=== PATIENT | male | born 1965 | race Caucasian/White ===

== ENCOUNTER 2019-04-13 23:08 | Emergency (ER) | payer MEDICARE, OTHER, SELFPAY ==
[2019-04-13 23:08] VITALS: BP 148/78; PULSE 88; RESP 16; TEMP 36.8; O2SAT 97; BMI 44.7
--- NOTE | 2019-04-13 23:20 | RAD_ITS ---
STUDY: X-RAY - LEFT FOOT CLINICAL: Male, 53 years old. Pain and tenderness in the heel. TECHNIQUE: 3 view(s) of the foot. COMPARISON: None. FINDINGS: Normal talus, calcaneus, and tarsal bones. There is arthrosis of the visualized subtalar, talonavicular, calcaneocuboid, tarsal and tarsometatarsal articulations. There is surgical resection of the head of the second metatarsal. Otherwise normal metatarsal There is degenerative arthrosis of the metatarsophalangeal joint of the hallux . Normal tibial and fibular sesamoid bones. Normal phalanges of the great toe. Normal second through fifth metatarsophalangeal joints. There is Claw toe deformity of the second through fifth toes. Soft tissues appear normal. There is no foreign body in the soft tissues adjacent to the area of pain. There is evidence of large cracks within the skin surface of the heel. RAD/Foot min 3 Views IMPRESSION: 1. Degenerative changes of the left foot without acute fracture or dislocation. 2. Surgical changes of the distal second metatarsal. 3. There are cracks in the skin overlying the heel without radiopaque foreign body. Electronically Signed: Mono England DO at 23:50 EDT Tel [phone], Service support ,
--- NOTE | 2019-04-13 23:26 | ED.DCSUM_ITS ---
History of Present Illness Chief Complaint: Lower Extremity Injury Informant: Patient Onset: Days - 2-3 Context: Gradual Onset Timing: Continuous Quality of Pain: Aching Location: left foot heel Current Severity: Mild Maximum Severity: Severe Worsened by: palpation or weight bearing on foot Relieved by: rest Associated Symptoms: Negative for: Parasthesia, Weakness, Loss of Funtion Narrative: Patient just be arrived here from [place] sharp pain at [address] the plantar aspect of his left heel for the past 3 days or so, it started gradually he does not remember a sudden onset of anything, but it feels like there is something there, some type of foreign body, just below the surface of the skin. He is too big to see the bottom of his own foot so we had a family member take some pictures and in the pictures looked red which brought him to the ER. He denies any discharge, bleeding, fevers. States his blood sugars have been high for the last couple days because since leaving [place] he forgot his insulin needles for his [place] and has his other medications, but has not been getting that one. - Past Medical History (1) Diabetes mellitus type 2 in obese Status: Chronic Past Medical History - Allergies and Home Meds Allergies/Adverse Reactions: Allergies No Known Allergies Allergy (Verified 04/13/19 23:08) Primary Care Physician: Kwan Harvey,Out of [NON-STAFF] - Smoking Status: Former smoker Review of Systems General: Denies: Chills, Fever Respiratory: Denies: Dyspnea, Cough Gastrointestinal: Denies: Nausea, Vomiting Musculoskeletal: Reports: Swelling - chronic, unchanged ankle swelling, Extremity Pain Skin: Reports: Wounds - chronic splits in skin foot without pain/disch arge/bleeding Physical Exam Vital Signs/Narrative: Vital Signs Temp Pulse Resp BP Pulse Ox 04/13/19 23:08 98.3 F 88 16 148/78 H 97 Inital Vital Signs reviewed: Yes - Extremity Exam Right Ankle: Edema - Chronic and unchanged per patient Left Ankle: Edema - Chronic and unchanged per patient Left Foot: - - Very tender at one point at plantar aspect of left heel; no palpable foreign body, no skin abnormalities overlying, no erythema/abnormal blanching compared with surrounding areas, no focal swelling. There is a superficial split and a callus posterior to this that does not appear infected and is nontender, and there is a similar-appearing but larger one at the tip of his great toe that is also nontender it does not appear infected. General: Well nourished, Well developed, Obese, - - Conversive, no acute distress, well-appearing Head: Normocephalic, Atraumatic Skin: Normal color, No rash, - - See above, left foot, for other details Neurological: Alert, Oriented x3, Cranial nerves II-XII grossly intact, Normal Strength, Normal Sensation Psychological: Normal affect, Normal Mood Diagnostic/Tx/Re-eval Impressions Foot X-Ray 04/13/19 23:20 IMPRESSION: 1. Degenerative changes of the left foot without acute fracture or dislocation. 2. Surgical changes of the distal second metatarsal. 3. There are cracks in the skin overlying the heel without radiopaque foreign body. Electronically Signed: Mono England DO at 23:50 EDT Tel [phone], Service support , 04/13/19 23:20 Foot min 3 Views [RAD] Stat Laboratory Results 04/13/19 04/13/19 23:28 23:28 WBC 5.9 RBC 3.70 L Hgb 11.0 L Hct 32.7 L MCV 88.4 MCH 29.7 MCHC 33.6 RDW 14.1 RDW Differential 45.6 H Plt Count 151 MPV 10.2 Immature Gran % (Auto) 0.200 Neut % (Auto) 65.4 Lymph % (Auto) 24.0 [place] % (Auto) 8.0 Eos % (Auto) 1.5 Baso % (Auto) 0.9 Absolute Neuts (auto) 3.9 Absolute Lymphs (auto) 1.41 Total Counted Not Reportable Sodium 137 Potassium 4.0 Chloride 107 Carbon Dioxide 22.0 Anion Gap 8 BUN 36 H Creatinine 1.91 H Estim Creat Clear Calc 50.22 Est GFR (MDRD) Af Amer 48 L Est GFR (MDRD) Non-Af 40 L BUN/Creatinine Ratio 18.8 Glucose 406 H Calcium 8.1 L - Medical Decision Making X-rays show no radiopaque foreign body. There is no evidence of infection clinically, but he is very point tender. Certainly a non-radiopaque foreign body is possible. He cannot remember walking barefoot anytime in the recent past or any obvious scenario where he could have received a foreign body. He is a diabetic with a high blood sugar but that is unrelated, and is iatrogenic since he has been unable to take his medication. We gave him some insulin needles here to use with his medication that he has with him. I gave him a dose of insulin to help get his sugar down tonight. I will place him on a short course of Keflex in order to keep him from getting any type of infection, or to treat any type of early infection that is not clinically evident yet. We will refer him to podiatry if he has continued symptoms. He is comfortable with this plan. ED Disposition - Plan for ED Patient: Disposition: Home or Assisted Living Diagnosis: Left foot pain, Hyperglycemia due to type 2 diabetes mellitus Instructions: Diabetes: Keeping Feet Healthy Prescriptions: Cephalexin [Keflex] 500 mg PO TID #21 cap Referrals: Salazar López DPM [STAFF PHYSICIAN] - 3-5 Days if not improving
--- NOTE | 2019-04-13 23:29 | ED.RN ---
DR. JEFFERY SAID PATIENT IS OK TO TAKE HOME MEDICATIONS. PATIENT IS VISITING HERE IN [place] AND DOES NOT HAVE NEEDLES TO TAKE HIS VICTOZA. DR. JEFFERY SAID IT IS OK TO GIVE HIM A COUPLE NEEDLES.
[2019-04-13 23:37] LABS: Absolute Lymphocyte Count 1.41 X10^3/ul (0.83-4.51); Absolute Neutrophil Count 3.9 X10^3/uL (2.0-7.7); Basophil# 0.05 X10^3/uL; Basophil% 0.9 % (0-1); Eosinophil# 0.09 X10^3/uL; Eosinophils% 1.5 % (0-5); Hematocrit 32.7 % (40-54); Lymphocyte # 1.41 X10^3/ul (4.0); Mean Corp Hgb Conc 33.6 g/gl (32-36); Mean Corpuscular Hgb 29.7 pg (27.0-32.0); Mean Corpuscular Volume 88.4 fL (80-94); Mean Platelet Vol. 10.2 fl (6.2-12.0); Monocyte# 0.47 X10^3/uL; Neutrophil # 3.85 X10^3/uL (2.7-7.7); Neutrophil % 65.4 % (47-70); Platelet Count 151 K/mm3 (150-450); RBC Distribution Width CV 14.1 % (11.6-14.6); RBC Distribution Width SD 45.6 fl (35.1-43.9); White Blood Count 5.9 K/mm3 (4.4-11.0)
[2019-04-13 23:51] LABS: POSITIVE COUNT NO; POSITIVE DIFFERENTIAL NO; POSITIVE MORPHOLOGY NO
[2019-04-13 23:57] LABS: Anion Gap 8 (5-15); BUN 36 mg/dL (7-18); BUN/Creat Ratio 18.8 RATIO (10-20); Calcium,Total 8.1 mg/dL (8.5-10.1); Chloride 107 mmol/L (98-107); Creatinine, Serum 1.91 mg/dL (0.70-1.30); EST Glomerular Filtration Rate 40 mL/min (>60); Est Glom Filt Rate - Afr Amer 48 mL/min (>60); Estimated Creatinine Clearance 50.22 ml/min; Glucose 406 mg/dL (74-106); Sodium Level 137 mmol/L (136-145)
--- NOTE | 2019-04-14 00:01 | ED.RN ---
sepsis screen completed per dr. contreras.
[2019-04-14] MEDS: Insulin Lispro 100 UNIT/ML INSULN.PEN 12 UNIT SC (00:08)
[2019-04-14] MEDS: Cephalexin 250 MG Capsule 500 MG PO (00:08)
== END 2019-04-14 00:13 | disposition home or self-care (01) ==
PROVIDERS: Emergency Provider Emergency Medicine
DX: M79.672 Pain in left foot (principal); E11.65 Type 2 diabetes mellitus with hyperglycemia; Z87.891 Personal history of nicotine dependence; E66.9 Obesity, unspecified
CPT/HCPCS: 36415; 73630; 80048; 85025; 99283

== ENCOUNTER 2024-07-18 20:09 | Inpatient (IN) | payer OTHER, SELFPAY ==
[2024-07-18] VITALS (7 sets, daily range): BP systolic 153–198; BP diastolic 78–105; PULSE 80–92; RESP 18; TEMP 36.2–36.8; O2SAT 96–100
--- NOTE | 2024-07-18 21:07 | ED.VIS.LOWEX ---
HPI History of Present Illness Chief Complaint: Wound Detail of Chief Complaint: Left leg pain and swelling Informant: patient Narrative Narrative: Patient presents with left leg pain and swelling. Patient states that he had his left great toe amputated in the May. He has had some skin graft applied a week ago because of the wound. He is on doxycycline. He is from [place] and here visiting his mom who is in the hospital. Patient is a diabetic. He states he ran out of his doxycycline. Now his foot and leg to the calf are more swollen. He denies chest pain or shortness of breath. He denies fevers. PFSH PFS Home Medications ?Medication ?Instructions ?Recorded ?Last Taken ?Type cephalexin 500 mg capsule 500 mg PO TID #21 caps 04/14/19 Unknown Rx atorvastatin 80 mg tablet 80 mg PO QHS 07/18/24 Unknown History doxycycline monohydrate 100 mg 100 mg PO BID 07/18/24 Unknown History tablet finasteride 5 mg tablet 5 mg PO QHS 07/18/24 Unknown History insulin glargine 100 unit/mL 35 unit subcut BID 07/18/24 Unknown History subcutaneous solution (Lantus U-100 Insulin) naltrexone 8 mg-bupropion 90 mg 1 tab PO BID 07/18/24 Unknown History tablet,extended release pantoprazole 40 mg tablet,delayed 40 mg PO 07/18/24 Unknown History release tamsulosin 0.4 mg capsule 0.4 mg PO QHS 07/18/24 Unknown History Allergy/AdvReac Type Severity Reaction Status Date / Time vancomycin Allergy Unknown OTHER Verified 07/18/24 20:10 varenicline (From Chantix) Allergy Unknown Other Verified 07/18/24 20:10 Social History Smoking Status: Former smoker ROS ROS ED Review of Systems ROS Unobtainable: other Constitutional Constitutional ED: Reports lethargy; Denies chills, fever(s), sweats or weight loss Eyes Eyes: Denies blurry vision, change in vision or diplopia ENT ENT ED: Denies rhinorrhea or sore throat Cardiovascular Cardiovascular: Denies chest pain, orthopnea or racing heartbeat Respiratory/Chest Respiratory/Chest: Denies cough, dyspnea, dyspnea on exertion, orthopnea or sputum Gastrointestinal Gastrointestinal: Denies abdominal pain, diarrhea, nausea or vomiting Genitourinary Genitourinary ED: Denies dysuria, hematuria or urinary frequency Musculoskeletal Musculoskeletal: Reports other Details: Left leg pain and swelling ; Denies arthralgias, back pain, myalgias or neck pain Integumentary Denies abscess, Abrasions or rash Neurologic Neurologic: Denies headache(s) or weakness Psychiatric Psychiatric: Denies anxiety, depression or suicidal thoughts Endocrine Endocrinology: Denies polydipsia, polyphagia or polyuria Hematologic/Lymphatic Hematologic/Lymphatic: Denies easy bleeding, easy bruising or lymphadenopathy Allergic/Immunologic Allergic/Immunologic ED: Denies mouth swelling, tongue swelling or urticaria EXAM Physical Exam Const Vital Signs: 07/18/24 20:10 07/18/24 20:37 07/18/24 21:12 Temperature 97.2 F L 98.3 F 98.2 F Temperature Source Temporal Oral Oral Pulse Rate 92 83 82 Respiratory Rate 18 18 18 Blood Pressure 198/88 H 161/105 H 156/78 H Blood Pressure Mean 124 123 104 Pulse Ox 100 98 97 Oxygen Delivery Method Room Air Room Air Room Air 07/18/24 21:53 Temperature 98.2 F Temperature Source Oral Pulse Rate 83 Respiratory Rate 18 Blood Pressure 153/80 H Blood Pressure Mean 104 Pulse Ox 97 Oxygen Delivery Method Room Air Positive well nourished and well developed General Appearance ED: well developed and NAD HEENT Reports TM's clear and moist mucous membranes normocephalic and atraumatic; Negative for trauma or tenderness Tympanic Membrane ED: Yes TM's clear Eyes PERRL and EOMs intact bilaterally General Eye ED: Negative for pale conjunctiva or scleral icterus Neck no lymphadenopathy, supple and no JVD General: Negative for tenderness Chest Wall inspection of chest normal and palpation of chest normal Chest: Negative for tenderness Resp normal respiratory effort and clear to auscultation bilaterally Effort and Inspection: Negative for respiratory distress or pain with movement Auscultation: Negative for rhonchi, wheezes or diminished lung sounds Cardio regular rate, regular rhythm, S1 normal heart sound, S2 normal heart sound and no murmurs Peripheral Pulses: pulses 2+ throughout GI normal to inspection, nondistended, normoactive bowel sounds, soft to palpation, non-tender, non-distended and no masses Back/Spine no CVA tenderness and no thoracic nor lumbar tenderness Extremity Extremity Narrative: Left leg-patient has edema of the left calf with some faint chronic cellulitic changes. Patient also has edema of the left foot. His great toes been amputated. No significant warmth noted. No open areas or purulent drainage noted. General Extremety ED: Negative for edema General Extremity: Negative for edema Neuro oriented x3, CN's II-XII intact bilaterally, no sensory deficits noted and gait normal Sensorium / Orientation: awake, alert, oriented to person, oriented to place and oriented to time Motor Exam: strength 5/5 throughout and strength abnormal Psych mental status grossly normal Skin no rashes or lesions noted and no wounds MDM MDM MDM Narrative Medical decision making narrative: Patient complains of redness and swelling to his left leg. Had been on doxycycline and ran out. Recent resection of his left great toe. Has had recent skin grafting. He is a diabetic with neuropathy visiting from [place]. IV line established. CBC with differential obtained showing a 5.2 with hemoglobin 8.8 and platelet count of 140. Chemistries unremarkable. BUN 40 and creatinine 3.65. Sed rate was elevated at 37 and C-reactive protein elevated at 36.4. X-rays of the left foot obtained showed no gas within the tissues. No obvious changes for osteomyelitis. Patient tells me he is allergic to vancomycin and Chantix. He was started on Zosyn. Case discussed with hospitalist to evaluate for admission for IV antibiotics for cellulitis. Patient had ultrasound the left lower extremity to rule out DVT and this was negative. Lab Data Attestation: I reviewed the patient's lab results. Labs: Laboratory Results - last 24 hr 07/18/24 21:20 WBC 5.2 RBC 3.07 L Hgb 8.8 L Hct 28.2 L MCV 91.9 MCH 28.7 MCHC 31.2 L RDW Std Deviation 49.1 H RDW Coeff of Ernesto 14.6 Plt Count 140 L MPV 10.2 Immature Gran % (Auto) 0.600 Neut % (Auto) 63.9 Lymph % (Auto) 20.7 [place] % (Auto) 10.5 H Eos % (Auto) 3.3 Baso % (Auto) 1.0 Absolute Neuts (auto) 3.4 Absolute Lymphs (auto) 1.08 Nucleated RBC % 0 Dohle Bodies 5.2 ESR 37 H Sodium 136 Potassium 4.7 Chloride 107 Carbon Dioxide 25.0 Anion Gap 4 L BUN 40 H Creatinine 3.65 H Est GFR (MDRD) Af Amer 22 L Est GFR (MDRD) Non-Af 18 L BUN/Creatinine Ratio 11.0 Glucose 314 H Calcium 8.5 C-React Prot Ext Range 36.40 H Radiography Diagnostic Testing: Clinical Impression(s) from Imaging Studies Venous Duplex 07/18/24 21:08 IMPRESSION: Subcutaneous edema lower legs. No DVT. Electronically Signed: Scottie Hewitt MD at 22:22 EDT Reading Location ID and State: [facility] / [place] Tel , Service support , Foot X-Ray 07/18/24 21:30 IMPRESSION: Soft tissue swelling great toe region. Chronic bony changes as noted above and amputation first and third digits. Electronically Signed: Scottie Hewitt MD at 22:12 EDT Reading Location ID and State: [facility] / [place] Tel , Service support , Three-view x-rays of the left foot obtained showed amputation of great toe and third toe interpretation. There is no gas within the tissues. There was soft tissue swelling. Radiology in agreement. Discharge Plan Triage Chief Complaint: Wound ED Provider: Kinjal Fraire Dx/Rx/DC Orders Clinical Impression: Cellulitis of left leg, Acute renal insufficiency, Hyperglycemia Prescriptions: No Action cephalexin 500 MG capsule 500 mg PO TID Qty: 21 0RF insulin glargine [Lantus U-100 Insulin] 100 unit/mL solution 35 unit subcut BID doxycycline monohydrate 100 mg tablet 100 mg PO BID tamsulosin 0.4 mg capsule 0.4 mg PO QHS pantoprazole 40 mg tablet,delayed release (DR/EC) 40 mg PO finasteride 5 mg tablet 5 mg PO QHS naltrexone-bupropion 8-90 mg tablet extended release 1 tab PO BID atorvastatin 80 mg tablet 80 mg PO QHS Primary Care Provider: [facility] Doctor,Out of Referrals: [facility] Doctor,Out of [Primary Care Provider] - Print Language: Faroese Disposition Disposition: Acute Care [facility]
--- NOTE | 2024-07-18 21:08 | US_ITS ---
STUDY: VENOUS DOPPLER ULTRASOUND - LEFT LOWER EXTREMITY REASON FOR EXAM: Male, 59 years old. LT LEG REDNESS TECHNIQUE: Ultrasound evaluation of the deep vein system to include nair-scale imaging and compression was performed. Nair-scale imaging and Doppler sonographic evaluation, including duplex spectral analysis and qualitative color flow sonography, was performed. COMPARISON: None. FINDINGS: Common Femoral Vein: Normal compression, spontaneity and augmentation. Normal color Doppler. Common Femoral Vein/Greater Saphenous Junction: Normal compression, spontaneity and augmentation. Normal color Doppler. Deep Femoral Vein: Normal compression, spontaneity and augmentation. Normal color Doppler. Femoral Proximal: Normal compression, spontaneity and augmentation. Normal color Doppler. Femoral Middle: Normal compression, spontaneity and augmentation. Normal color Doppler. Femoral Distal: Normal compression, spontaneity and augmentation. Normal color Doppler. Popliteal Vein: Normal compression, spontaneity and augmentation. Normal color Doppler. Posterior Tibial Vein: Normal compression, spontaneity and augmentation. Normal color Doppler. Peroneal Vein: Normal compression, spontaneity and augmentation. Normal color Doppler. Soft tissue swelling lower leg. US/Venous Duplex Imag/Limited/Uni IMPRESSION: Subcutaneous edema lower legs. No DVT. Electronically Signed: Scottie Hewitt MD at 22:22 EDT ,
[2024-07-18 21:30] LABS: Absolute Lymphocyte Count 1.08 X10^3/uL (0.83-4.51); Absolute Neutrophil Count 3.4 X10^3/uL (2.0-7.7); Basophil# 0.05 X10^3/uL; Eosinophil# 0.17 X10^3/uL; Eosinophils% 3.3 % (0-5); Hematocrit 28.2 % (40-54); Hemoglobin 8.8 g/dL (13.0-16.5); Lymphocyte # 1.08 X10^3/ul (0.83-4.51); Lymphocyte % 20.7 % (19-41); Mean Corp Hgb Conc 31.2 g/dL (32-36); Mean Corpuscular Hgb 28.7 pg (27.0-32.0); Mean Corpuscular Volume 91.9 fL (80-94); Mean Platelet Vol. 10.2 fl (6.2-12.0); Monocyte# 0.55 X10^3/uL; Monocyte% 10.5 % (0-10); NRBC Flagged by Analyzer 0 % (0-5); Neutrophil # 3.35 X10^3/uL (2.7-7.7); Neutrophil % 63.9 % (47-70); Platelet Count 140 K/mm3 (150-450); RBC Distribution Width CV 14.6 % (11.6-14.6); RBC Distribution Width SD 49.1 fl (35.1-43.9); Red Blood Count 3.07 M/mm3 (4.6-6.2); White Blood Count 5.2 K/mm3 (4.4-11.0)
--- NOTE | 2024-07-18 21:30 | RAD_ITS ---
STUDY: X-RAY - LEFT FOOT CLINICAL: Male, 59 years old. pain, swelling TECHNIQUE: 3 view(s) of the foot. COMPARISON: None. FINDINGS: Normal talus, calcaneus, and tarsal bones. Normal visualized subtalar, talonavicular, calcaneocuboid, tarsal and tarsometatarsal articulations. Osteolysis of the second metatarsal head. Amputation great toe at the metatarsal phalangeal joint. Normal tibial and fibular sesamoid bones. Normal interphalangeal joint of the great toe. Normal phalanges of the great toe. Normal second through fifth metatarsophalangeal joints. Residual well-corticated osteolysis third proximal phalanx. Soft tissue calcifications lower leg. Diffuse soft tissue swelling especially the great toe region. No subcutaneous gas or radiodense foreign body noted. RAD/Foot min 3 Views IMPRESSION: Soft tissue swelling great toe region. Chronic bony changes as noted above and amputation first and third digits. Electronically Signed: Scottie Hewitt MD at 22:12 EDT ,
[2024-07-18 21:37] LABS: Dohle Bodies 5.2
[2024-07-18 21:38] LABS: Erythrocyte Sedimentation Rate 37 mm/hr (0-20)
[2024-07-18 21:42] LABS: Anion Gap 4 (5-15); BUN 40 mg/dL (7-18); Calcium,Total 8.5 mg/dL (8.5-10.1); Chloride 107 mmol/L (98-107); Creatinine, Serum 3.65 mg/dL (0.70-1.30); EST Glomerular Filtration Rate 18 mL/min (>60); Est Glom Filt Rate - Afr Amer 22 mL/min (>60); Glucose 314 mg/dL (74-106); Potassium 4.7 mmol/L (3.5-5.1); Sodium Level 136 mmol/L (136-145)
[2024-07-18] MEDS: Piperacil/Tazobactam 4.5 GM in 0.9% Normal Saline (100mL MB+) 100 ML IV (22:37)
--- NOTE | 2024-07-18 22:43 | PCM.HP.STD ---
HPI - General General Date of Admission: 07/18/24 Date of Service: 07/18/24 Chief Complaint: LLE distal cellulitis. HPI Narrative The patient is a 59 y/o M w/ PMHx: Hx CVA w/ mild chronic speech deficits associated, Former tobacco use, Diabetes mellitus type II, HTN, HLD, GERD, Chronic memory impairment/potentially underlying dementia, unclear type with unclear behavioral disturbance history, Suspected CKD unclear type III versus possible progressed to IV, Chronic anemia who presents to the [facility] ED on 07/18/24 with history of significant left lower extremity foot pain and swelling with recent left great toe amputation May with a skin graft applied the week prior secondary to a wound on doxycycline at that time reporting that he is actually visiting from [place] secondary to his mother being in the hospital unfortunately running out of the doxycycline with then onset of distal schmidt on the LLE onset redness, edema, discomfort x 1.5 weeks, worsening with no fevers or chills but given appearance prompted ED evaluation to be cautious. He currently complains of discomfort to the left distal schmidt and ankle region at 7 out of 10 in severity, aching, more severe with palpation. Workup in the ED included T97.2, heart rate 92, BP 198/88, respiratory rate 18, 100% on room air with most recent repeat vital signs T98.2, heart rate 83, BP 153/80, respiratory rate 18, 97% on room air, CBC with WBC 5.2, hemoglobin 8.8, MCV 91.9, platelet 140 without marked shift, ESR 37, CRP 36.40, BMP with BUN/creatinine 40/3.65, glucose 314, left lower extremity venous duplex ultrasound with subcutaneous edema but no DVT, plain film of the left foot with soft tissue swelling of the great toe region with chronic bony changes and evidence of previous amputation of the first and third digits. In the ED patient administered IV Zosyn therapy. [facility] Medical History BPH (benign prostatic hyperplasia) Chronic anemia CKD (chronic kidney disease) History of CVA (cerebrovascular accident) Memory impairment GERD (gastroesophageal reflux disease) HLD (hyperlipidemia) HTN (hypertension) Diabetes mellitus, type 2 Former tobacco use Home Medications ?Medication ?Instructions ?Recorded ?Last Taken ?Type cephalexin 500 mg capsule 500 mg PO TID #21 caps 04/14/19 Unknown Rx atorvastatin 80 mg tablet 80 mg PO QHS 07/18/24 Unknown History doxycycline monohydrate 100 mg 100 mg PO BID 07/18/24 Unknown History tablet finasteride 5 mg tablet 5 mg PO QHS 07/18/24 Unknown History insulin glargine 100 unit/mL 35 unit subcut BID 07/18/24 Unknown History subcutaneous solution (Lantus U-100 Insulin) naltrexone 8 mg-bupropion 90 mg 1 tab PO BID 07/18/24 Unknown History tablet,extended release pantoprazole 40 mg tablet,delayed 40 mg PO 07/18/24 Unknown History release tamsulosin 0.4 mg capsule 0.4 mg PO QHS 07/18/24 Unknown History Allergy/AdvReac Type Severity Reaction Status Date / Time vancomycin Allergy Unknown OTHER Verified 07/18/24 20:10 varenicline (From Chantix) Allergy Unknown Other Verified 07/18/24 20:10 Family History (Updated 07/18/24 @ 23:[address] Anitha Glass MD) Father CAD (coronary artery disease) Heart disease Hypertension Myocardial infarction Mother Hypertension Heart disease PAF (paroxysmal atrial fibrillation) Surgical History (Updated 07/18/24 @ 23:[address] Anitha Glass MD) S/P pilonidal cyst excision Status post bilateral total hip replacement S/P appendectomy Status post left foot surgery Social History (Updated 07/18/24 @ 23:[address] Anitha Glass MD) household members: spouse Smoking Status: Former smoker how long ago did patient quit smoking: Quit 11 years prior (~2012), smoked 3/4 ppd since teen until quit. alcohol intake: never substance use type: does not use ROS ROS Narrative Admission Review of Systems: CONSTITUTIONAL: No weight loss, fever, chills, weakness or fatigue. HEENT: Eyes: No visual loss, blurred vision, double vision or yellow sclerae. Ears, Nose, Throat: No hearing loss, sneezing, congestion, runny nose or sore throat. SKIN: + Chronic bilateral lower extremity venous stasis skin changes, recent left lower extremity great toe amputation with grafting, left distal schmidt redness/stasis wounds. CARDIOVASCULAR: No chest pain, chest pressure or chest discomfort, palpitations, edema, orthopnea, syncopal events. RESPIRATORY: No shortness of breath, cough or sputum, wheezing, hemoptysis. GASTROINTESTINAL: No anorexia, nausea, vomiting or diarrhea, abdominal pain, melena, BRBPR. GENITOURINARY: No dysuria, frequency, urgency or retention. NEUROLOGICAL: + History of prior CVA with chronic mild speech impairment, no headache, dizziness, syncope, paralysis, ataxia, numbness or tingling in the extremities, focal weakness, change in bowel or bladder control, seizure. MUSCULOSKELETAL: No muscle, back pain, joint pain or stiffness. HEMATOLOGIC: + Chronic anemia, easy bleeding/bruising. LYMPHATICS: No enlarged nodes. No history of splenectomy. PSYCHIATRIC: + Suspect potential underlying PTSD but uncertain. ENDOCRINOLOGIC: No reports of sweating, cold or heat intolerance. No polyuria or polydipsia. ALLERGIES: No history of asthma, hives, eczema or rhinitis. Vital Signs Vital Signs Vital Signs: 07/18/24 20:10 07/18/24 20:37 07/18/24 21:12 Temperature 97.2 F L 98.3 F 98.2 F Temperature Source Temporal Oral Oral Pulse Rate 92 83 82 Respiratory Rate 18 18 18 Blood Pressure 198/88 H 161/105 H 156/78 H Blood Pressure Mean 124 123 104 Pulse Ox 100 98 97 Oxygen Delivery Method Room Air Room Air Room Air 07/18/24 21:53 Temperature 98.2 F Temperature Source Oral Pulse Rate 83 Respiratory Rate 18 Blood Pressure 153/80 H Blood Pressure Mean 104 Pulse Ox 97 Oxygen Delivery Method Room Air Physical Exam Narrative Physical Examination: General: Awake, alert, oriented x 3 and cooperative, seated upright in the ED bed, notes pain to left distal schmidt region 7 out of 10. Skin: Normal color, normal turgor, no icterus, no cyanosis except for notable bilateral lower extremity venous stasis skin changes as well as recent left great toe amputation status post grafting, well-appearing, left distal schmidt with erythema, increased warmth to touch, increased swelling as well as open stasis blister wounds with no marked drainage and not foul-smelling. HEENT: AT/NC, EOMI, PERRLA, MMM, no carotid bruits or JVD noted. Lungs: Mildly diminished, greater bases, appropriate effort, no rales, ronchi or wheezing. Heart: Currently regular rate and rhythm; no gallop, rub audible. Abdomen: Soft, obese, NTTP, ND, mildly hyperactive BS, no appreciated HSM. Extremities: No cyanosis, no clubbing, bilateral lower extremity appearance of likely chronic edema but also acute on chronic left lower extremity with some pitting secondary to acute infection, see skin. Neurological: Patient awake, alert, oriented as noted, cognitive function intact; pupils equally reactive to light and accommodation, cranial nerves grossly normal, moving all 4 extremities, no focal deficits, strength moderately globally decreased secondary to acute presentation complaints and underlying comorbidities. Psychiatric: Affect appears fatigued, notes uncomfortable, no acute evidence of depressive or anxiety feelings but do suspect likely underlying mood disorder versus PTSD. Results Lab / Micro Data 07/18/24 21:20 07/18/24 21:20 Labs: Laboratory Results - last 24 hr 07/18/24 21:20: WBC 5.2, RBC 3.07 L, Hgb 8.8 L, Hct 28.2 L, MCV 91.9, MCH 28.7, MCHC 31.2 L, RDW Std Deviation 49.1 H, RDW Coeff of Ernesto 14.6, Plt Count 140 L, MPV 10.2, Immature Gran % (Auto) 0.600, Neut % (Auto) 63.9, Lymph % (Auto) 20.7, [place] % (Auto) 10.5 H, Eos % (Auto) 3.3, Baso % (Auto) 1.0, Absolute Neuts (auto) 3.4, Absolute Lymphs (auto) 1.08, Nucleated RBC % 0, Dohle Bodies 5.2, ESR 37 H, Sodium 136, Potassium 4.7, Chloride 107, Carbon Dioxide 25.0, Anion Gap 4 L, BUN 40 H, Creatinine 3.65 H, Est GFR (MDRD) Af Amer 22 L, Est GFR (MDRD) Non-Af 18 L, BUN/Creatinine Ratio 11.0, Glucose 314 H, Calcium 8.5, C-React Prot Ext Range 36.40 H Imaging Radiology Impression Venous Duplex 07/18/24 21:08 IMPRESSION: Subcutaneous edema lower legs. No DVT. Electronically Signed: Scottie Hewitt MD at 22:22 EDT , Foot X-Ray 07/18/24 21:30 IMPRESSION: Soft tissue swelling great toe region. Chronic bony changes as noted above and amputation first and third digits. Electronically Signed: Scottie Hewitt MD at 22:12 EDT Reading Location ID and State: [facility] [place] Tel , Service support , Assessment & Plan Assessment/Plan (1) Cellulitis of left leg: PLAN: Plan The patient is a 59 y/o M w/ PMHx: Hx CVA w/ mild chronic speech deficits associated, Former tobacco use, Diabetes mellitus type II, HTN, HLD, GERD, Chronic memory impairment/potentially underlying dementia, unclear type with unclear behavioral disturbance history, Suspected CKD unclear type III versus possible progressed to IV, Chronic anemia who presents to the [facility] ED on 07/18/24 with history of significant left lower extremity foot pain and swelling with recent left great toe amputation May with a skin graft applied the week prior secondary to a wound on doxycycline at that time reporting that he is actually visiting from [place] secondary to his mother being in the hospital unfortunately running out of the doxycycline with then onset of distal schmidt on the LLE onset redness, edema, discomfort x 1.5 weeks, worsening with no fevers or chills but given appearance prompted ED evaluation to be cautious. #1. Left lower extremity cellulitis complicated by recent LLE great toe amp and recent grafting to that region ~ 3 weeks prior: Will admit to [facility], maintain on IV Zosyn, defer vanc given possible severe allergy, will plan repeat CBC in AM, continue affected extremity elevation above heart when seated and in bed, monitor erythema outline with VS checks, given extensive history and recent interventions will request local podiatry evaluation to be cautious however it is well appearing, encourage offloading to this region, pain regimen as needed. MRSA screen requested and if positive may need to consider linezolid. #2. Diabetes mellitus type II with hyperglycemia, suspect uncontrolled: Hold oral home regimen, continue home insulin regimen, ADA diet, accu checks w/ ISS, hemoglobin A1c requested, nutrition consulted for education and teaching. #3. Suspected Chronic Kidney Disease Stage III per prior GFR attending remotely in 2018, potentially progressed to stage IV based on current GFR presentation: Admission BUN/Cr 40/3.65, GFR 18, baseline renal function noted remotely 04/03/19 creatinine 1.91 and GFR at that time 40, thus unclear if patient is stage III and now progressed to stage IV CKD, will repeat CMP to further elucidate if this is chronic or if there is an acute component. #4. Chronic normocytic anemia: Admission hemoglobin 8.8, MCV 91.9, no recent labs, remotely noted 04/13/19 hemoglobin 11, will obtain iron panel, ferritin, repeat CBC in AM. #5. Chronic memory impairment/potentially underlying dementia, unclear type with unclear behavioral disturbance history: From prior records appears to have been on donepezil, clarifying if ongoing, encourage continued outpatient follow-up and evaluation as previously arranged, case management consulted. #6. BPH: We will continue patient home Flomax and finasteride home regimen. #7. Hypertension: Continue home regimen including amlodipine 10 mg, holding benazepril given unclear renal function at this time as noted above, PRN hydralazine. #8. Hyperlipidemia: We will continue patient on statin therapy. #9. Former tobacco use: Encourage continued tobacco cessation. #10. GERD: We will continue patient on PPI. #11. History CVA: Patient with chronic mild speech impairment/stuttering reported following stroke approximate 11 years prior, will continue aspirin, statin, hypertensive regimen, diabetic regimen with adjustments as noted. #12. DVT prophylaxis: Heparin. #13. CODE status: Patient does not have healthcare power of civil rights attorney or living will in place but notes his Ana would be his decision-maker if necessary. Discussed CODE status at length including difference between FULL code, DNR-CCA and DNR-CC status. Following discussions about the differences in these status, requested Full Code status BUT he very specifically notes that he would only want 15 minutes of these measures and if they were not successful at that point to let him pass naturally. Advanced Care Planning Face to Face Time: 16 minutes. Charges/Coding Visit Charges Inpatient E&M: 95593 Init Hosp L3 Procedures Hospitalists Procedures: 70527 Advncd Care Plan 30 Min
[2024-07-18 23:04] LABS: Magnesium 2.3 mg/dL (1.6-2.6)
[2024-07-19] VITALS (12 sets, daily range): BP systolic 104–183; BP diastolic 70–87; PULSE 66–84; RESP 16–18; TEMP 36.4–37.1; O2SAT 96–100; BMI 36.8; BMI 36.7
[2024-07-19] MEDS: 0.9% Normal Saline (1000mL) 1,000 ML 100 ML IV (02:40)
--- NOTE | 2024-07-19 03:03 | NURSING ---
Patient request to check on glucose which was 252
[2024-07-19] MEDS: Piperacil/Tazobactam 3.375 GM in 0.9% Normal Saline (50mL MB+) 50 ML IV ×3 (06:07→22:01)
--- NOTE | 2024-07-19 07:02 | ED.RN ---
Patients glucose was 209.
[2024-07-19 07:19] LABS: Absolute Lymphocyte Count 0.93 X10^3/uL (0.83-4.51); Basophil# 0.06 X10^3/uL; Basophil% 1.3 % (0-1); Eosinophil# 0.17 X10^3/uL; Eosinophils% 3.6 % (0-5); Hematocrit 26.8 % (40-54); Hemoglobin 8.5 g/dL (13.0-16.5); Lymphocyte # 0.93 X10^3/ul (0.83-4.51); Lymphocyte % 19.6 % (19-41); Mean Corp Hgb Conc 31.7 g/dL (32-36); Mean Corpuscular Hgb 29.4 pg (27.0-32.0); Mean Corpuscular Volume 92.7 fL (80-94); Mean Platelet Vol. 10.5 fl (6.2-12.0); Monocyte# 0.56 X10^3/uL; Monocyte% 11.8 % (0-10); NRBC Flagged by Analyzer 0 % (0-5); Neutrophil # 3.01 X10^3/uL (2.7-7.7); Neutrophil % 63.5 % (47-70); Platelet Count 130 K/mm3 (150-450); RBC Distribution Width CV 14.5 % (11.6-14.6); RBC Distribution Width SD 49.1 fl (35.1-43.9); Red Blood Count 2.89 M/mm3 (4.6-6.2); White Blood Count 4.7 K/mm3 (4.4-11.0)
--- NOTE | 2024-07-19 07:46 | PCM.PN.HOSP ---
Reason for Visit Reason for Visit: Diagnoses Cellulitis of left lower limb (07/18/24) Objective Data Objective Data Vital Signs: Vital Signs Temp Pulse Resp BP Pulse Ox O2 Del Method 97.8 F 73 18 128/74 H 99 Room Air 07/19/24 06:00 07/19/24 06:00 07/19/24 06:00 07/19/24 06:00 07/19/24 06:00 07/19/24 06:00 Oxygen Delivery Method Room Air Weight: 129.727 kg Body Mass Index (BMI) 36.7 Intake & Output: Intake and Output for Last 24 Hours 07/17/24 07/18/24 07/19/24 23:59 23:59 23:59 Intake Total 100 / 100 Output Total 900 / 900 Balance 100 / 100 -900 / -900 Lab / Micro Data 07/19/24 06:15 07/19/24 06:15 Labs: Laboratory Results - last 24 hr 07/18/24 21:20: WBC 5.2, RBC 3.07 L, Hgb 8.8 L, Hct 28.2 L, MCV 91.9, MCH 28.7, MCHC 31.2 L, RDW Std Deviation 49.1 H, RDW Coeff of Ernesto 14.6, Plt Count 140 L, MPV 10.2, Immature Gran % (Auto) 0.600, Neut % (Auto) 63.9, Lymph % (Auto) 20.7, [place] % (Auto) 10.5 H, Eos % (Auto) 3.3, Baso % (Auto) 1.0, Absolute Neuts (auto) 3.4, Absolute Lymphs (auto) 1.08, Nucleated RBC % 0, Dohle Bodies 5.2, ESR 37 H, Sodium 136, Potassium 4.7, Chloride 107, Carbon Dioxide 25.0, Anion Gap 4 L, BUN 40 H, Creatinine 3.65 H, Est GFR (MDRD) Af Amer 22 L, Est GFR (MDRD) Non-Af 18 L, BUN/Creatinine Ratio 11.0, Glucose 314 H, Calcium 8.5, Magnesium 2.3, C-React Prot Ext Range 36.40 H 07/19/24 06:15: WBC 4.7, RBC 2.89 L, Hgb 8.5 L, Hct 26.8 L, MCV 92.7, MCH 29.4, MCHC 31.7 L, RDW Std Deviation 49.1 H, RDW Coeff of Ernesto 14.5, Plt Count 130 L, MPV 10.5, Immature Gran % (Auto) 0.200, Neut % (Auto) 63.5, Lymph % (Auto) 19.6, [place] % (Auto) 11.8 H, Eos % (Auto) 3.6, Baso % (Auto) 1.3 H, Absolute Neuts (auto) 3.0, Absolute Lymphs (auto) 0.93, Nucleated RBC % 0 Micro: Microbiology 07/19/24 04:07 Nasal Secretion MRSA (PCR) - Final Radiography Diagnostic Testing: Radiology Impression Venous Duplex 07/18/24 21:08 IMPRESSION: Subcutaneous edema lower legs. No DVT. Electronically Signed: Scottie Hewitt MD at 22:22 EDT Reading Location ID and State: [address] [place] [address] Tel , Service support , Foot X-Ray 07/18/24 21:30 IMPRESSION: Soft tissue swelling great toe region. Chronic bony changes as noted above and amputation first and third digits. Electronically Signed: Scottie Hewitt MD at 22:12 EDT Reading Location ID and State: [address] [place] [address] Tel , Service support , Physical Exam Narrative GENERAL: cooperative HEENT: Atraumatic; normocephalic EYES; Anicteric, Normal Conjunctiva NECK; supple, normal thyroid, RESPIRATORY: Diminished to auscultation CARDIOVASCULAR: Regular S1 S2, GI: soft, normoactive bowel sounds, : No Renal angle tenderness; EXTREMITIES: Left foot and extremity in surgical dressing MUSCULOSKELETAL: no muscle wasting NEURO: Awake; no lateralizing signs. SKIN: No Rash PSYCH; Flat affect Assessment & Plan Assessment/Plan (1) Cellulitis of left leg: PLAN: Plan Patient is a 59-year-old gentleman who is currently [facility] [place] with recent left great toe amputation with grafting performed in [facility] who presented with erythema and redness involving the left lower extremity and assessment of cellulitis was made admitted to regular nursing floor for further management 1. Left lower extremity cellulitis ? Patient started on broad-spectrum antibiotic therapy with consultation placed wound care and and podiatry 2. Recent left great toe amputation with grafting ? Consult has been placed to podiatry remains stable 3. Diabetes mellitus type II -patient's oral hypoglycemics held. Placed on long acting insulin, Accu-Cheks a.c. and at bedtime and covered with sliding scale insulin 4.Anemia ? Secondary to chronic disorder monitoring H&H and transfuse if patient becomes symptomatic or hemoglobin falls below 7 5. BPH with lower urinary obstructive symptoms - Patient treated with tamsulosin and finasteride 6. Class II obesity with BMI of 36.7 Complicating care weight loss advised 7. GERD ? Patient is on PPI continue 8. 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 Learning disability ? Complicating care 10. Dyslipidemia ?Patient is on statin therapy, continued at home dose 11. Chronic kidney disease stage IV ? Ordered renal ultrasound consult placed to nephrology 12. DVT prophylaxis ? SC heparin. Time spent in the patient's overall evaluation,decision-making process, review of diagnostic data, adjustment of management, discussion with other providers, nursing nursing and ancillary staff involved in patient's care documentation, 52 Minutes Charges/Coding Visit Charges Inpatient E&M: 70050 Subs Hosp L3
[2024-07-19 08:04] LABS: ALB/GLOB Ratio 0.6 RATIO (0.9-2.4); AST(SGOT) 17 U/L (15-37); Alanine Aminotransfer ALT/SGPT 18 U/L (16-61); Albumin, Serum 2.1 g/dL (3.2-5.0); Alkaline Phosphatase 79 U/L (45-117); Anion Gap 3 (5-15); BUN 41 mg/dL (7-18); BUN/Creat Ratio 11.8 RATIO (10-20); Calcium,Total 8.6 mg/dL (8.5-10.1); Chloride 108 mmol/L (98-107); Creatinine, Serum 3.48 mg/dL (0.70-1.30); EST Glomerular Filtration Rate 19 mL/min (>60); Est Glom Filt Rate - Afr Amer 24 mL/min (>60); Estimated Creatinine Clearance 33.53 ml/min; Ferritin 60 ng/mL (26-388); Globulin 3.6 g/dL (2.2-4.2); Glucose 273 mg/dL (74-106); Iron 32 ug/dL (65-175); Iron Binding Capacity,Total 235 ug/dL (250-450); PERCENT IRON SATURATION 13.6 % (15.0-55.0); Potassium 4.5 mmol/L (3.5-5.1); Protein, Total 5.7 g/dL (6.4-8.2); Sodium Level 137 mmol/L (136-145)
--- NOTE | 2024-07-19 08:24 | PCM.CONS.GEN ---
Assessment & Plan Assessment/Plan (1) Cellulitis of left leg: PLAN: Patient was examined and evaluated. All findings were discussed with the patient in great detail. All questions were answered to the patient satisfaction. No evidence of open wound to culture at the level of the foot or anterior left leg. Vascular studies ordered: Results pending After physical exam performed the patient shows evidence of dependent rubor versus cellulitis to the left lower extremity. After elevation of the left leg the erythema improves but returns upon dependency. The patient's left lower extremity was dressed with Adaptic over skin graft, 2x2s, and a single-layer Camargo compression bandage was donned. Scott wrap was done to the right lower extremity. Educated patient that he needs to make sure that he is elevating his bilateral lower extremities at rest. Orders in for bilateral dressing changes. WBC: 4.7 ESR: 37 CRP: 36.40 Glu (POC): 370 Educated patient on his diabetes and strict blood sugar control. Medicine: On board, medical management, IV Zosyn Nephrology: On board No plan on surgical intervention from a podiatry standpoint from this hospital admission. Patient is cleared from a podiatry perspective to discharge home when cleared by medicine team and nephrology. Recommend oral antibiotics at time of discharge for 14 days. Podiatry will continue to follow while patient is house. Thank you for the patient consultation! (2) Dependent rubor: (3) Chronic painful diabetic polyneuropathy: (4) Other specified peripheral vascular diseases: HPI Consult Data Date of Consult: 07/19/24 HPI Narrative Reason for Consultation: Left extremity cellulitis HPI Narrative: SEVERIANO ACOSTA, is a 59 y/o M w/ PMHx: Hx CVA w/ mild chronic speech deficits associated, Former tobacco use, Diabetes mellitus type II, HTN, HLD, GERD, Chronic memory impairment/potentially underlying dementia, unclear type with unclear behavioral disturbance history, Suspected CKD unclear type III versus possible progressed to IV, Chronic anemia who presents to the [facility] ED on 07/18/24 with history of significant left lower extremity foot pain and swelling with recent left great toe amputation in May. Patient has been on long-term oral antibiotics. He does mention some left lower extremity discomfort. Patient is planning on returning back to [place] in the next upcoming week but is staying with relatives while in [facility]. He admits that most of his pain is anterior left schmidt with some redness. His reason for presenting to emergency department evaluation was to be cautious of a possible wound to the left leg that he is dealt with in the past. Podiatry consulted for left lower extremity evaluation and possible surgical planning. Patient denies any trauma to the left leg. Denies constitutional symptoms. Other pain complaints at this time. [facility] Medical History BPH (benign prostatic hyperplasia) Chronic anemia CKD (chronic kidney disease) History of CVA (cerebrovascular accident) Memory impairment GERD (gastroesophageal reflux disease) HLD (hyperlipidemia) HTN (hypertension) Diabetes mellitus, type 2 Former tobacco use Home Medications ?Medication ?Instructions ?Recorded ?Last Taken ?Type atorvastatin 80 mg tablet 80 mg PO QHS 07/18/24 Unknown History doxycycline monohydrate 100 mg 100 mg PO BID 07/18/24 Unknown History tablet finasteride 5 mg tablet 5 mg PO QHS 07/18/24 Unknown History insulin glargine 100 unit/mL 35 unit subcut BID 07/18/24 Unknown History subcutaneous solution (Lantus U-100 Insulin) insulin regular human 100 unit/mL 12 unit subcut TID 07/18/24 Unknown History injection solution (Humulin R Regular U-100 Insulin) naltrexone 8 mg-bupropion 90 mg 1 tab PO BID 07/18/24 Unknown History tablet,extended release pantoprazole 40 mg tablet,delayed 40 mg PO DAILY 07/18/24 Unknown History release tamsulosin 0.4 mg capsule 0.4 mg PO QHS 07/18/24 Unknown History Allergy/AdvReac Type Severity Reaction Status Date / Time vancomycin Allergy Unknown OTHER Verified 07/18/24 20:10 varenicline (From Chantix) Allergy Unknown Other Verified 07/18/24 20:10 Family History Father CAD (coronary artery disease) Heart disease Hypertension Myocardial infarction Mother Hypertension Heart disease PAF (paroxysmal atrial fibrillation) Surgical History S/P pilonidal cyst excision Status post bilateral total hip replacement S/P appendectomy Status post left foot surgery Social History household members: spouse Smoking Status: Former smoker how long ago did patient quit smoking: Quit 11 years prior (~2012), smoked 3/4 ppd since teen until quit. alcohol intake: never substance use type: does not use Physical Exam Narrative Vascular: DP and PT pulses are palpable to the bilateral treatment. CFT is brisk. Dependent rubor appreciated to the left anterior left leg which disappears with elevation. Skin temperature is warm to warm from proximal ankle to distal digit bilaterally. Mild focal increase noted to the anterior left schmidt. Neurological: Light touch intact. Patient response to painful stimuli. Protective station is absent. Dermatological: No open lesions or abrasions are appreciated. No subcutaneous nodules appreciated lateral. Evidence of sanguinous crust appreciated to the anterior legs bilateral. Dependent rubor to the left anterior leg which disappears with elevation. Webspaces 1 through 4 are clean dry intact Musculoskeletal: The strength is 5 of 5 quadrants bilateral. Mild pain on palpation to anterior left leg. No pain to palpation to the right anterior leg. No pain with calf pressure bilateral. Const alert, oriented x3 and no apparent distress Lab / Micro Data 07/19/24 06:15 07/19/24 06:15 Labs: Laboratory Results - last 24 hr 07/18/24 21:20: WBC 5.2, RBC 3.07 L, Hgb 8.8 L, Hct 28.2 L, MCV 91.9, MCH 28.7, MCHC 31.2 L, RDW Std Deviation 49.1 H, RDW Coeff of Ernesto 14.6, Plt Count 140 L, MPV 10.2, Immature Gran % (Auto) 0.600, Neut % (Auto) 63.9, Lymph % (Auto) 20.7, Moody % (Auto) 10.5 H, Eos % (Auto) 3.3, Baso % (Auto) 1.0, Absolute Neuts (auto) 3.4, Absolute Lymphs (auto) 1.08, Nucleated RBC % 0, Dohle Bodies 5.2, ESR 37 H, Sodium 136, Potassium 4.7, Chloride 107, Carbon Dioxide 25.0, Anion Gap 4 L, BUN 40 H, Creatinine 3.65 H, Est GFR (MDRD) Af Amer 22 L, Est GFR (MDRD) Non-Af 18 L, BUN/Creatinine Ratio 11.0, Glucose 314 H, Calcium 8.5, Magnesium 2.3, C-React Prot Ext Range 36.40 H 07/19/24 06:15: WBC 4.7, RBC 2.89 L, Hgb 8.5 L, Hct 26.8 L, MCV 92.7, MCH 29.4, MCHC 31.7 L, RDW Std Deviation 49.1 H, RDW Coeff of Ernesto 14.5, Plt Count 130 L, MPV 10.5, Immature Gran % (Auto) 0.200, Neut % (Auto) 63.5, Lymph % (Auto) 19.6, Moody % (Auto) 11.8 H, Eos % (Auto) 3.6, Baso % (Auto) 1.3 H, Absolute Neuts (auto) 3.0, Absolute Lymphs (auto) 0.93, Nucleated RBC % 0, Sodium 137, Potassium 4.5, Chloride 108 H, Carbon Dioxide 26.0, Anion Gap 3 L, BUN 41 H, Creatinine 3.48 H, Estim Creat Clear Calc 33.53, Est GFR (MDRD) Af Amer 24 L, Est GFR (MDRD) Non-Af 19 L, BUN/Creatinine Ratio 11.8, Glucose 273 H, Calcium 8.6, Iron 32 L, TIBC 235 L, Iron Saturation 13.6 L, Ferritin 60, Total Bilirubin 0.30, AST 17, ALT 18, Alkaline Phosphatase 79, Total Protein 5.7 L, Albumin 2.1 L, Globulin 3.6, Albumin/Globulin Ratio 0.6 L Micro: Microbiology 07/19/24 04:07 Nasal Secretion MRSA (PCR) - Final Imaging Radiology Impression Venous Duplex 07/18/24 21:08 IMPRESSION: Subcutaneous edema lower legs. No DVT. Electronically Signed: Scottie Hewitt MD at 22:22 EDT Reading Location ID and State: [address] [place] [address] Tel , Service support , Foot X-Ray 07/18/24 21:30 IMPRESSION: Soft tissue swelling great toe region. Chronic bony changes as noted above and amputation first and third digits. Electronically Signed: Scottie Hewitt MD at 22:12 EDT Reading Location ID and State: [facility] / [place] Tel , Service support ,
[2024-07-19] MEDS: Insulin Lispro 100 UNIT/ML INSULN.PEN SC ×4 (09:14→22:11)
[2024-07-19] MEDS: Heparin Injection (Vial) 5,000 UNIT/ML VIAL 5000 UNIT SC ×2 (09:15→22:04)
[2024-07-19] MEDS: Insulin Glargine-YFGN 100 UNIT/ML Pen 35 UNIT SC ×2 (09:16→22:09)
[2024-07-19] MEDS: Pantoprazole Sodium 40 MG Tablet PO ×2 (09:16→22:03)
[2024-07-19] MEDS: Acetaminophen 325 MG Tablet 650 MG PO (09:26)
--- NOTE | 2024-07-19 10:06 | US_ITS ---
STUDY: RENAL ULTRASOUND - COMPLETE REASON FOR EXAM: Male, 59 years old. ckd TECHNIQUE: Ultrasound evaluation of the kidneys was performed with real-time and static jeronimo-scale imaging. COMPARISON: None. FINDINGS: RIGHT KIDNEY: Normal location of the right kidney, which is normal in size. The right kidney measures 12.2 cm x 5.5 cm x 5.4 cm. There is a normal cortex of the right kidney. The renal cortex measures 1.3 cm. There is no right renal mass or cyst. There are no right renal calculi. There is no right hydronephrosis. DISTAL RIGHT URETER: There is non-visualization of the distal right ureter. There is no demonstrated right ureterovesical junction calculus. There is no demonstrated right ureteral jet. LEFT KIDNEY: Normal location of the left kidney, which is normal in size. The left kidney measures 12 cm x 4.6 cm x 5.2 cm. There is a normal cortex of the left kidney. The renal cortex measures 1.1 cm. There is no left renal mass or cyst. There are no left renal calculi. There is no left hydronephrosis. DISTAL LEFT URETER: There is non-visualization of the distal left ureter. There is no demonstrated left ureterovesical junction calculus. There is no demonstrated left ureteral jet. BLADDER: The distended urinary bladder has a volume of 91 ml. There is a normal wall thickness of the distended urinary bladder. There is no demonstrated mass within the urinary bladder. There are no demonstrated bladder calculi. US/Kidney and Bladder IMPRESSION: Normal ultrasound of the kidneys and urinary bladder. Electronically Signed: Colt Lynn MD at 12:12 EDT ,
--- NOTE | 2024-07-19 10:34 | WOUNDNOTE ---
wound photo: left lower leg
--- NOTE | 2024-07-19 10:35 | WOUNDNOTE ---
wound photo: left foot
[2024-07-19] MEDS: Iron Polysaccharide Complex 150 MG CAPSULE PO (11:52)
[2024-07-19 11:58] LABS: Bedside Glucose 307 mg/dL (74-106)
--- NOTE | 2024-07-19 12:06 | CON.PCM.RE_ITS ---
Assessment & Plan Assessment/Plan (1) Acute renal insufficiency: (2) Cellulitis of left leg: (3) Diabetes mellitus type 2 in obese: PLAN: Plan This is a pleasant 59-year-old male with past medical history significant for diabetes mellitus type 2 (approximately 30-year history), hypertension, history of CVA with mild chronic speech deficits, GERD, hyperlipidemia who presented to the emergency room with redness and swelling of left lower leg. Admitted for left lower extremity cellulitis. Patient recently underwent left great toe amputation with skin graft in May in [place]. Patient is visiting his mother who is in the hospital here in [place]. Nephrology consulted in view of elevated creatinine. Patient reports he has been followed by a medical coding instructor. Patient reports he has never required any renal placement therapy. Patient's creatinine was 2.7 in April 2024, 7gm proteinuria, negative immunofixation (labs obtained via the [employer] system). Yesterday creatinine 3.65 and today creatinine 3.48. Likely BREANA from infection. CKD likely related to diabetic nephropathy. Renal US ordered. Will obtain UA. 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 Blood pressures acceptable. History of recent left great toe amputation with grafting and left lower extremity cellulitis patient is on IV antibiotic therapy, consult placed to wound care and podiatry. Venous duplex no DVT. Left Foot x-ray soft tissue swelling great toe region. Further orders forthcoming as hospitalization evolves, thank you for letting us participate in the care of Mr. Watson. HPI Consult Data Date of Consult: 07/19/24 HPI Narrative HPI Narrative: SEVERIANO WATSON, is a 59 M with past medical history significant for diabetes mellitus type 2 (approximately 30-year history), hypertension, history of CVA with mild chronic speech deficits, GERD, hyperlipidemia who presented to the emergency room with redness and swelling of left lower leg. Admitted for left lower extremity cellulitis. Patient recently underwent left great toe amputation with skin graft in May. Patient currently lives in [place] but is visiting his mother who is in the hospital here in [place]. Nephrology consulted in view of elevated creatinine. Patient reports he has been followed by a medical coding instructor. Patient reports he is never required any renal placement therapy. Patient's creatinine was 2.7 in April 2024 ([facility] In the ER creatinine 3.6 mg/dL and today patient's creatinine is 3.4 mg/dL. Patient denies any NSAID use. Denies any nausea or vomiting. No new medications. PFSH Medical History BPH (benign prostatic hyperplasia) Chronic anemia CKD (chronic kidney disease) History of CVA (cerebrovascular accident) Memory impairment GERD (gastroesophageal reflux disease) HLD (hyperlipidemia) HTN (hypertension) Diabetes mellitus, type 2 Former tobacco use Home Medications ?Medication ?Instructions ?Recorded ?Last Taken ?Type atorvastatin 80 mg tablet 80 mg PO QHS 07/18/24 Unknown History doxycycline monohydrate 100 mg 100 mg PO BID 07/18/24 Unknown History tablet finasteride 5 mg tablet 5 mg PO QHS 07/18/24 Unknown History insulin glargine 100 unit/mL 35 unit subcut BID 07/18/24 Unknown History subcutaneous solution (Lantus U-100 Insulin) insulin regular human 100 unit/mL 12 unit subcut TID 07/18/24 Unknown History injection solution (Humulin R Regular U-100 Insulin) naltrexone 8 mg-bupropion 90 mg 1 tab PO BID 07/18/24 Unknown History tablet,extended release pantoprazole 40 mg tablet,delayed 40 mg PO DAILY 07/18/24 Unknown History release tamsulosin 0.4 mg capsule 0.4 mg PO QHS 07/18/24 Unknown History Allergy/AdvReac Type Severity Reaction Status Date / Time vancomycin Allergy Unknown OTHER Verified 07/18/24 20:10 varenicline (From Chantix) Allergy Unknown Other Verified 07/18/24 20:10 Family History Father CAD (coronary artery disease) Heart disease Hypertension Myocardial infarction Mother Hypertension Heart disease PAF (paroxysmal atrial fibrillation) Surgical History S/P pilonidal cyst excision Status post bilateral total hip replacement S/P appendectomy Status post left foot surgery Social History household members: spouse Smoking Status: Former smoker how long ago did patient quit smoking: Quit 11 years prior (~2012), smoked 3/4 ppd since teen until quit. alcohol intake: never substance use type: does not use ROS ROS Narrative As in HPI and past medical history Physical Exam Narrative Alert and orient x 3, no apparent distress S1, S2, RRR Lungs clear Abdomen soft, nontender Scott wrap intact to left leg. No pitting edema Lab / Micro Data 07/19/24 06:15 07/19/24 06:15 Labs: Laboratory Results - last 24 hr 07/18/24 21:20: WBC 5.2, RBC 3.07 L, Hgb 8.8 L, Hct 28.2 L, MCV 91.9, MCH 28.7, MCHC 31.2 L, RDW Std Deviation 49.1 H, RDW Coeff of Ernesto 14.6, Plt Count 140 L, MPV 10.2, Immature Gran % (Auto) 0.600, Neut % (Auto) 63.9, Lymph % (Auto) 20.7, Pick[place] % (Auto) 10.5 H, Eos % (Auto) 3.3, Baso % (Auto) 1.0, Absolute Neuts (auto) 3.4, Absolute Lymphs (auto) 1.08, Nucleated RBC % 0, Dohle Bodies 5.2, ESR 37 H, Sodium 136, Potassium 4.7, Chloride 107, Carbon Dioxide 25.0, Anion Gap 4 L, BUN 40 H, Creatinine 3.65 H, Est GFR (MDRD) Af Amer 22 L, Est GFR (MDRD) Non-Af 18 L , BUN/Creatinine Ratio 11.0, Glucose 314 H, Calcium 8.5, Magnesium 2.3, C-React Prot Ext Range 36.40 H 07/19/24 06:15: WBC 4.7, RBC 2.89 L, Hgb 8.5 L, Hct 26.8 L, MCV 92.7, MCH 29.4, MCHC 31.7 L, RDW Std Deviation 49.1 H, RDW Coeff of Ernesto 14.5, Plt Count 130 L, MPV 10.5, Immature Gran % (Auto) 0.200, Neut % (Auto) 63.5, Lymph % (Auto) 19.6, [place] % (Auto) 11.8 H, Eos % (Auto) 3.6, Baso % (Auto) 1.3 H, Absolute Neuts (auto) 3.0, Absolute Lymphs (auto) 0.93, Nucleated RBC % 0, Sodium 137, Potassium 4.5, Chloride 108 H, Carbon Dioxide 26.0, Anion Gap 3 L, BUN 41 H, C reatinine 3.48 H, Estim Creat Clear Calc 33.53, Est GFR (MDRD) Af Amer 24 L, Est GFR (MDRD) Non-Af 19 L, BUN/Creatinine Ratio 11.8, Glucose 273 H, Glycated Hemoglobin Cancelled, Hemoglobin A1c Cancelled, Calcium 8.6, Iron 32 L, TIBC 235 L, Iron Saturation 13.6 L, Ferritin 60, Total Bilirubin 0.30, AST 17, ALT 18, Alkaline Phosphatase 79, Total Protein 5.7 L, Albumin 2.1 L, Globulin 3.6, A lbumin/Globulin Ratio 0.6 L 07/19/24 11:32: POC Glucose 307 H Micro: Microbiology 07/19/24 04:07 Nasal Secretion MRSA (PCR) - Final Imaging Radiology Impression Venous Duplex 07/18/24 21:08 IMPRESSION: Subcutaneous edema lower legs. No DVT. Electronically Signed: Scottie eHwitt MD at 22:22 EDT Reading Location ID and State: [address] [place] [address] Tel , Service support , Foot X-Ray 07/18/24 21:30 IMPRESSION: Soft tissue swelling great toe region. Chronic bony changes as noted above and amputation first and third digits. Electronically Signed: Scottie Hewitt MD at 22:12 EDT Reading Location ID and State: [facility] / [place] Tel , Service support ,
--- NOTE | 2024-07-19 13:05 | ART_ITS ---
Reason For Study: Ulcer Procedure A bilateral lower extremity continuous wave Doppler with analog waveform analysis,segmental pressures,and ankle brachial indexes without exercise. Left Segmental Pressures Left brachial= 150mmHg. Left posterior tibial artery = 171mmHg. Left dorsalis pedis artery = 171mmHg. The left dorsalis pedis waveforms are biphasic. The left posterior tibial artery waveforms are triphasic. Right Segmental Pressures Right brachial= 141mmHg. Right posterior tibial artery = 184mmHg. Right dorsalis pedis artery = 187mmHg. Right digit = 127 mmHg. The right dorsalis pedis waveforms are triphasic. The right posterior tibial artery waveforms are triphasic. Indices The right ankle brachial index by the dorsalis pedis is 1.25. The right ankle brachial index by the posterior tibial artery is 1.23. The right digital-brachial index is 0.85. The left ankle brachial index by the dorsalis pedis is 1.14. The left ankle brachial index by the posterior tibial artery is 1.14. VL/Lower Ext Art Exam w/o Exercis Interpretation Summary Right ALCON 1.25, normal. TBI and Doppler/PVR waveforms of the right leg normal a t rest. Left ALCON 1.14, normal. Doppler/PVR waveforms of the left leg normal at rest. No TBI due to prior digit amputation Ordering Physician: Alejandro Govea Referring Physician: [facility] Performed By: Elvia Hannon RVT
--- NOTE | 2024-07-19 13:10 | CHAPLAIN ---
Type of Pastoral Visit _x__ Initial Visit ___ Follow-up Visit ___ On-call Visit ___ General Patient Visit ___ Spiritual Assessment ___ Family Conference ___ Bereavement ___ Rapid Response ___ Code Blue ___ Other (describe below) Pastoral Care Referral From _x__ Patient ___ Family ___ Nurse ___ Physician ___ Operator Assistant I Cementing ___ Storm Sash Maker ___ Other (describe below) Sacrament/Intervention _x__ Active listening ___ Anointing ___ Rastafarian ___ Bereavement ___ Communion _x__ Jaye exploration ___ _x__ Life review _x_ Prayer ___ Reconciliation ___ Sacrament of Sick _x__ Supportive presence ___ Wedding ___ Other (describe below) Pastoral Comments patient talks openly about his health and especially his emotional need for his support animal; pt becomes tearful when describing his relationship with his dog and how he so much wants the dog to be able to come to the hospital for that is more important to me than anything right now; explored with patient what other resources of emotional support and spiritual care that he has; at this time a relative brought in his support animal and the patient was overjoyed at the [facility]; offered further assistance as needed; pt requests a prayer from this head of marketing adometry;
[2024-07-19 13:24] LABS: Bacteria 0 SEEN /hpf (None Seen); Mucous, Urine 0 SEEN /hpf (<or=2+); Squamous Epithelial Cells - UA 0 SEEN /hpf (0-5); White Blood Cells 0 SEEN /hpf (0-5)
[2024-07-19 13:42] LABS: Color, Urine Yellow (Yellow); Glucose, Dipstick 1000 mg/dl (Normal); Ketone-Dipstick Negative (Negative); Leukocyte Esterase-Dipstick Negative /ul (Negative); Nitrite-Dipstick Negative (Negative); Occult Blood-Urine 25 /ul (Negative); Protein-Dipstick 500 mg/dl (Negative); Urine Bilirubin Dipstick Negative (Negative); Urine Clarity Clear (Clear); Urine Urobilinogen Normal (Normal)
[2024-07-19 13:58] LABS: Red Blood Cells-Urine 0-5 SEEN /hpf (0-5)
--- NOTE | 2024-07-19 15:55 | CASEMGMT ---
XANDER BURCH Assessment Face to Face with patient for initial transition planning/care coordination assessment. XANDER BURCH introduced self and role at [facility], pt voices understanding. Pt is A&Ox4 and is resting comfortably in bed and is calm. Care providers, pharmacy, and demographics verified. Admitting dx: Cellulitis LLE LACE Strata: 1 PCP: NA in [place] Specialists: Endo, Nephro, and Entertainment & Media Correspondent in [place] Preferred Pharmacy: [facility] at time of DC Insurance: [facility], [employer] [facility] Prescription Benefit: Yes LNOK: Ana Watson (W) Living Arrangements: Pt lives in [place] in a 2 story home with a FFSU and 2-3 steps to enter. ADLs/IADLs: Ind Transportation: Self, family. Denies concerns DME: BGM and supplies. CBGM and supplies. BP Monitor. Denies further needs HHC/SNF: States Hip Surgery x 5-10 years ago and went to a SNF and then had HHC set up after but cannot recall the agency or facility. This was in [place]. Pt?s goal: Home Plan: Home no needs. 6-click is 24. Pt states that he can tend to his wound himself and that his will also be able to help. Pt denies further questions or concerns at this time Gloria Charles RN, CM
[2024-07-19 16:39] LABS: Bedside Glucose 258 mg/dL (74-106)
[2024-07-19] MEDS: Atorvastatin Calcium 80 MG Tablet PO (22:03)
[2024-07-19] MEDS: Tamsulosin HCl 0.4 MG Capsule PO (22:04)
[2024-07-19] MEDS: Finasteride 5 MG Tablet PO (22:05)
[2024-07-19 23:10] LABS: Bedside Glucose 244 mg/dL (74-106)
[2024-07-20 03:00] VITALS: BP 147/75; PULSE 57; RESP 16; TEMP 36.6; O2SAT 99
[2024-07-20 04:30] VITALS: BMI 36.8
[2024-07-20] MEDS: Piperacil/Tazobactam 3.375 GM in 0.9% Normal Saline (50mL MB+) 50 ML IV (05:56)
[2024-07-20] MEDS: Insulin Lispro 100 UNIT/ML INSULN.PEN SC (06:02)
[2024-07-20] MEDS: Glucerna Shake 120 ML LIQUID PO (06:11)
[2024-07-20 06:57] LABS: Bedside Glucose 282 mg/dL (74-106)
[2024-07-20 07:43] LABS: Absolute Lymphocyte Count 0.97 X10^3/uL (0.83-4.51); Absolute Neutrophil Count 2.5 X10^3/uL (2.0-7.7); Basophil# 0.05 X10^3/uL; Basophil% 1.2 % (0-1); Eosinophil# 0.14 X10^3/uL; Eosinophils% 3.4 % (0-5); Hemoglobin 8.5 g/dL (13.0-16.5); Lymphocyte # 0.97 X10^3/ul (0.83-4.51); Lymphocyte % 23.8 % (19-41); Mean Corp Hgb Conc 31.5 g/dL (32-36); Mean Corpuscular Hgb 29.2 pg (27.0-32.0); Mean Corpuscular Volume 92.8 fL (80-94); Mean Platelet Vol. 10.8 fl (6.2-12.0); Monocyte# 0.41 X10^3/uL; NRBC Flagged by Analyzer 0 % (0-5); Neutrophil # 2.49 X10^3/uL (2.7-7.7); Neutrophil % 61.1 % (47-70); Platelet Count 150 K/mm3 (150-450); RBC Distribution Width CV 14.1 % (11.6-14.6); RBC Distribution Width SD 48.3 fl (35.1-43.9); Red Blood Count 2.91 M/mm3 (4.6-6.2); White Blood Count 4.1 K/mm3 (4.4-11.0)
--- NOTE | 2024-07-20 08:54 | PN_ITS ---
Objective Data Objective Data Vital Signs: Vital Signs Temp Pulse Resp BP Pulse Ox O2 Del Method 98 F 57 L 16 147/75 H 99 Room Air 07/20/24 03:00 07/20/24 03:00 07/20/24 03:00 07/20/24 03:00 07/20/24 03:00 07/20/24 08:10 Oxygen Delivery Method Room Air Weight: 130.4 kg Body Mass Index (BMI) 36.8 Intake & Output: Intake and Output for Last 24 Hours 07/18/24 07/19/24 07/20/24 23:59 23:59 23:59 Intake Total 100 / 100 1710 / 2190 1010 / 1010 Output Total 2300 / 3050 1750 / 1750 Balance 100 / 100 -590 / -860 -740 / -740 Lab / Micro Data 07/20/24 06:22 07/19/24 06:15 Labs: Laboratory Results - last 24 hr 07/19/24 06:15: Glycated Hemoglobin Cancelled, Hemoglobin A1c Cancelled 07/19/24 11:32: POC Glucose 307 H 07/19/24 13:12: Urine Color Yellow, Urine Clarity Clear, Urine pH 7.0, Ur Specific [place] 1.010, Urine Protein 500 H, Urine Glucose (UA) 1000 H, Urine Ketones Negative, Urine Occult Blood 25 H, Urine Nitrite Negative, Urine Bilirubin Negative, Urine Urobilinogen Normal, Ur Leukocyte Esterase Negative, Urine RBC 0-5 SEEN, Urine WBC 0 SEEN, Ur Squamous Epith Cells 0 SEEN, Urine Bacteria 0 SEEN, Urine Mucus 0 SEEN 07/19/24 16:15: POC Glucose 258 H 07/19/24 21:58: POC Glucose 244 H 07/20/24 06:01: POC Glucose 282 H 07/20/24 06:22: WBC 4.1 L, RBC 2.91 L, Hgb 8.5 L, Hct 27.0 L, MCV 92.8, MCH 29.2, MCHC 31.5 L, RDW Std Deviation 48.3 H, RDW Coeff of Ernesto 14.1, Plt Count 150, MPV 10.8, Immature Gran % (Auto) 0.500, Neut % (Auto) 61.1, Lymph % (Auto) 23.8, Lawrence % (Auto) 10.0, Eos % (Auto) 3.4, Baso % (Auto) 1.2 H, Absolute Neuts (auto) 2.5, Absolute Lymphs (auto) 0.97, Nucleated RBC % 0 Micro: Microbiology 07/19/24 04:07 Nasal Secretion MRSA (PCR) - Final Radiography Diagnostic Testing: Radiology Impression Renal Ultrasound 07/19/24 10:06 IMPRESSION: Normal ultrasound of the kidneys and urinary bladder. Electronically Signed: Colt Lynn MD at 12:12 EDT ,
--- NOTE | 2024-07-20 09:12 | DS.PCM_ITS ---
Providers Date of Admission: 07/18/24 Date of Discharge: 07/20/24 Primary Care Physician: [facility] Consultations 07/19/24 02:27 Consult: Onc/Wound/stress test technician Routine Comment: Reason for Consult:: L great toe recent surgery/graft Consult: Podiatry Routine Consulting Provider: Alejandro Govea Reason for Consult: out of town, recent L great toe amp/graft EMERGENT Consult: No MD Notified: Yes Date Notified: 07/18/24 Time Notified: 22:48 Method of Notification: Text 07/19/24 10:06 Consult: Nephrology Routine Consulting Provider: Yosvany Grant Reason for Consult: ckd EMERGENT Consult: No Notified: Yes Date Notified: 07/19/24 Time Notified: 10:12 Method of Notification: Text Reason For Visit: CELLULITIS LLE Diagnosis Discharge Diagnosis (1) Cellulitis of left leg: Status: Acute Code(s): L03.116 - Cellulitis of left lower limb (2) Dependent rubor: Status: Acute Code(s): L53.9 - Erythematous condition, unspecified (3) Chronic painful diabetic polyneuropathy: Status: Acute Code(s): E11.42 - Type 2 diabetes mellitus with diabetic polyneuropathy (4) Other specified peripheral vascular diseases: Status: Acute Code(s): I73.89 - Other specified peripheral vascular diseases Plan Patient is a 59-year-old gentleman who is currently visiting the mom with recent left great toe amputation with grafting performed in [facility] who presented with erythema and redness involving the left lower extremity and assessment of cellulitis was made admitted to regular nursing floor for further management 1. Left lower extremity cellulitis ? Patient started on broad-spectrum antibiotic therapy with consultation placed wound care and and podiatry ? Patient did improve with the current antibiotic therapy prescription was written for cefdinir on the. Patient was instructed to follow-up with his primary renewable energy engineer in [place] within 3 to 5 days 2. Recent left great toe amputation with grafting ? Consult has been placed to podiatry remains stable 3. Diabetes mellitus type II -patient's oral hypoglycemics held. Placed on long acting insulin, Accu-Cheks a.c. and at bedtime and covered with sliding scale insulin 4.Anemia ? Secondary to chronic disorder monitoring H&H and transfuse if patient becomes symptomatic or hemoglobin falls below 7 5. BPH with lower urinary obstructive symptoms - Patient treated with tamsulosin and finasteride 6. Class II obesity with BMI of 36.7 Complicating care weight loss advised 7. GERD ? Patient is on PPI continue 8. 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 Learning disability ? Complicating care 10. Dyslipidemia ?Patient is on statin therapy, continued at home dose 11. Chronic kidney disease stage IV ? Ordered renal ultrasound consult placed to nephrology 12. DVT prophylaxis ? SC heparin. 13. Anemia ? Secondary to chronic disorder monitoring H&H and transfuse if patient becomes symptomatic or hemoglobin falls below 7 Time spent in the patient's overall evaluation,decision-making process, review of diagnostic data, adjustment of management, discussion with other providers, nursing nursing and ancillary staff involved in patient's care documentation, 35 Minutes Medications at Discharge Home Medications atorvastatin 80 mg tablet 80 mg PO QHS 07/18/24 doxycycline monohydrate 100 mg tablet 100 mg PO BID 07/18/24 finasteride 5 mg tablet 5 mg PO QHS 07/18/24 insulin glargine 100 unit/mL subcutaneous solution (Lantus U-100 Insulin) 35 unit subcut BID 07/18/24 insulin regular human 100 unit/mL injection solution (Humulin R Regular U-100 Insulin) 12 unit subcut TID 07/18/24 naltrexone 8 mg-bupropion 90 mg tablet,extended release 1 tab PO BID 07/18/24 pantoprazole 40 mg tablet,delayed release 40 mg PO DAILY 07/18/24 tamsulosin 0.4 mg capsule 0.4 mg PO QHS 07/18/24 cefdinir 300 mg capsule 300 mg PO BID #14 caps 07/20/24 Physical Exam Narrative GENERAL: cooperative HEENT: Atraumatic; normocephalic EYES; Anicteric, Normal Conjunctiva NECK; supple, normal thyroid, RESPIRATORY: Diminished to auscultation CARDIOVASCULAR: Regular S1 S2, GI: soft, normoactive bowel sounds, : No Renal angle tenderness; EXTREMITIES: Left foot and extremity in surgical dressing MUSCULOSKELETAL: no muscle wasting NEURO: Awake; no lateralizing signs. SKIN: No Rash PSYCH; Flat affect Weight / BMI Weight Weight: 130.4 kg Body Mass Index (BMI) 36.8 ABG / Lab / Microbiology Data 07/20/24 06:22 07/19/24 06:15 Laboratory: Laboratory Results - last 24 hr 07/19/24 06:15: Glycated Hemoglobin Cancelled, Hemoglobin A1c Cancelled 07/19/24 11:32: POC Glucose 307 H 07/19/24 13:12: Urine Color Yellow, Urine Clarity Clear, Urine pH 7.0, Ur Specific [place] 1.010, Urine Protein 500 H, Urine Glucose (UA) 1000 H, Urine Ketones Negative, Urine Occult Blood 25 H, Urine Nitrite Negative, Urine Bilirubin Negative, Urine Urobilinogen Normal, Ur Leukocyte Esterase Negative, Urine RBC 0-5 SEEN, Urine WBC 0 SEEN, Ur Squamous Epith Cells 0 SEEN, Urine Bacteria 0 SEEN, Urine Mucus 0 SEEN 07/19/24 16:15: POC Glucose 258 H 07/19/24 21:58: POC Glucose 244 H 07/20/24 06:01: POC Glucose 282 H 07/20/24 06:22: WBC 4.1 L, RBC 2.91 L, Hgb 8.5 L, Hct 27.0 L, MCV 92.8, MCH 29.2, MCHC 31.5 L, RDW Std Deviation 48.3 H, RDW Coeff of Ernesto 14.1, Plt Count 150, MPV 10.8, Immature Gran % (Auto) 0.500, Neut % (Auto) 61.1, Lymph % (Auto) 23.8, [place] % (Auto) 10.0, Eos % (Auto) 3.4, Baso % (Auto) 1.2 H, Absolute Neuts (auto) 2.5, Absolute Lymphs (auto) 0.97, Nucleated RBC % 0 Microbiology: Microbiology 07/19/24 04:07 Nasal Secretion MRSA (PCR) - Final Radiography Diagnostic Testing: Radiology Impression Renal Ultrasound 07/19/24 10:06 IMPRESSION: Normal ultrasound of the kidneys and urinary bladder. Electronically Signed: Colt Lynn MD at 12:12 EDT , D/C Instructions Discharge Diet: 1800 Calorie Control Diet Discharge Activity: Return to Normal Activity Call your doctor if you observe: Fever of 101 or Higher, Shortness of breath, Fainting spells and Chest pain Meaningful Use Info Meaningful Use Meaningful Use Diagnoses (Choose all that apply): None applicable Ischemic Stroke Statin Dosing Therapy Reference: STATIN DOSE THERAPY REFERENCE: * Patients > 75 years receive moderate or high dose statin therapy. * Patients 75 years or YOUNGER should receive HIGH intensity statin dose unless contraindicated. You will be required to document reason for non-treatment if statin daily dose does not meet guidelines. HIGH DOSE STATIN THERAPY DAILY Atorvastatin > than or = to 40 mg Rosuvastatin > than or = to 20 mg Amlodipine + Atorvastatin > than or = to 2.5/40 mg Ezetimibe + Simvastatin 10/80 mg Simvastatin 80mg Discharge Plan Admission Admit Date/Time: 07/18/24 22:46 Attending Provider: Magen Khan Primary Care Provider: [facility] Consulting Providers: Alejandro Govea; Anitha Glass; Yosvany Grant Discharge Orders/Prescriptions Prescriptions: New cefdinir 300 mg capsule 300 mg PO BID Qty: 14 0RF Continued insulin glargine [Lantus U-100 Insulin] 100 unit/mL solution 35 unit subcut BID doxycycline monohydrate 100 mg tablet 100 mg PO BID tamsulosin 0.4 mg capsule 0.4 mg PO QHS pantoprazole 40 mg tablet,delayed release (DR/EC) 40 mg PO DAILY finasteride 5 mg tablet 5 mg PO QHS naltrexone-bupropion 8-90 mg tablet extended release 1 tab PO BID atorvastatin 80 mg tablet 80 mg PO QHS Humulin R Regular U-100 Insuln 100 unit/mL solution 12 unit subcut TID Patient Comments: takes 12-20 units with meals Referrals / Follow Up: [facility] Doctor,Out of [Non-Staff] - Within 1 Week [facility] [Primary Care Provider] - Disposition Disposition (needs filled in before D/C Order can be placed): Home, Self Care Charges/Coding Visit Charges Inpatient E&M: 85011 Disch Hosp >30min
[2024-07-20 09:16] LABS: Anion Gap 3 (5-15); BUN 40 mg/dL (7-18); BUN/Creat Ratio 11.4 RATIO (10-20); Calcium,Total 8.8 mg/dL (8.5-10.1); Chloride 110 mmol/L (98-107); Creatinine, Serum 3.51 mg/dL (0.70-1.30); EST Glomerular Filtration Rate 19 mL/min (>60); Est Glom Filt Rate - Afr Amer 23 mL/min (>60); Estimated Creatinine Clearance 33.33 ml/min; Glucose 294 mg/dL (74-106); Magnesium 2.5 mg/dL (1.6-2.6); Phosphorus 3.4 mg/dL (2.5-4.9); Potassium 4.7 mmol/L (3.5-5.1); Sodium Level 138 mmol/L (136-145)
[2024-07-20 09:18] VITALS: BP 146/101; PULSE 65; RESP 18; TEMP 36.2; O2SAT 99
[2024-07-20] MEDS: Pantoprazole Sodium 40 MG Tablet PO (09:20)
[2024-07-20] MEDS: Iron Polysaccharide Complex 150 MG CAPSULE PO (09:20)
[2024-07-20] MEDS: Heparin Injection (Vial) 5,000 UNIT/ML VIAL 5000 UNIT SC (09:20)
[2024-07-20] MEDS: Insulin Glargine-YFGN 100 UNIT/ML Pen 35 UNIT SC (09:21)
--- NOTE | 2024-07-20 10:33 | CASEMGMT ---
Patient has order for discharge. RN CM in to discuss needs at discharge. Patient denies needs or help at discharge. Patient had no further questions or concerns.
== END 2024-07-20 11:00 | disposition home or self-care (01) | DRG 603 ==
LOC: ED 22:30 → PCU 07-19 02:09
PROVIDERS: Nurse Practitioner Adult Health; Admitting Provider Family Medicine; Emergency Provider Emergency Medicine; Visit Provider Internal Medicine
DX: L03.116 Cellulitis of left lower limb (principal); N17.9 Acute kidney failure, unspecified; N13.8 Other obstructive and reflux uropathy; N18.4 Chronic kidney disease, stage 4 (severe); D63.1 Anemia in chronic kidney disease; E11.21 Type 2 diabetes mellitus with diabetic nephropathy; B95.62 Methicillin resistant Staphylococcus aureus infection as the cause of diseases classified elsewhere; E11.42 Type 2 diabetes mellitus with diabetic polyneuropathy; F03.90 Unspecified dementia, unspecified severity, without behavioral disturbance, psychotic disturbance, mood disturbance, and anxiety; I12.9 Hypertensive chronic kidney disease with stage 1 through stage 4 chronic kidney disease, or unspecified chronic kidney disease; E11.22 Type 2 diabetes mellitus with diabetic chronic kidney disease; E11.65 Type 2 diabetes mellitus with hyperglycemia; E78.5 Hyperlipidemia, unspecified; K21.9 Gastro-esophageal reflux disease without esophagitis; Z79.4 Long term (current) use of insulin; E11.51 Type 2 diabetes mellitus with diabetic peripheral angiopathy without gangrene; L53.9 Erythematous condition, unspecified; Z89.412 Acquired absence of left great toe; Z86.73 Personal history of transient ischemic attack (TIA), and cerebral infarction without residual deficits; Z87.891 Personal history of nicotine dependence; Z79.82 Long term (current) use of aspirin; F81.9 Developmental disorder of scholastic skills, unspecified; N13.9 Obstructive and reflux uropathy, unspecified; N40.1 Benign prostatic hyperplasia with lower urinary tract symptoms
CPT/HCPCS: 36415; 73630; 76770; 80048; 80053; 81001; 82728; 82962; 83540; 83550; 83735; 84100; 85025; 85652; 86140; 87641; 93923; 93971; 94668; 97802; 99284; J7030; A4216

== ENCOUNTER 2024-11-12 12:27 | Emergency (ER) | payer OTHER, SELFPAY ==
[2024-11-12 12:29] VITALS: BP 153/77; PULSE 96; RESP 18; TEMP 36.1; O2SAT 99; BMI 36.9
[2024-11-12 13:05] LABS: Absolute Lymphocyte Count 0.73 X10^3/uL (0.83-4.51); Absolute Neutrophil Count 3.4 X10^3/uL (2.0-7.7); Basophil# 0.04 X10^3/uL; Basophil% 0.8 % (0-1); Eosinophil# 0.13 X10^3/uL; Eosinophils% 2.6 % (0-5); Hematocrit 31.6 % (40-54); Hemoglobin 10.3 g/dL (13.0-16.5); Lymphocyte # 0.73 X10^3/ul (0.83-4.51); Lymphocyte % 14.4 % (19-41); Mean Corp Hgb Conc 32.6 g/dL (32-36); Mean Corpuscular Hgb 30.4 pg (27.0-32.0); Mean Corpuscular Volume 93.2 fL (80-94); Mean Platelet Vol. 9.7 fl (6.2-12.0); Monocyte# 0.73 X10^3/uL; Monocyte% 14.4 % (0-10); NRBC Flagged by Analyzer 0 % (0-5); Neutrophil # 3.41 X10^3/uL (2.7-7.7); Neutrophil % 67.2 % (47-70); Platelet Count 138 K/mm3 (150-450); RBC Distribution Width CV 14.6 % (11.6-14.6); RBC Distribution Width SD 49.1 fl (35.1-43.9); Red Blood Count 3.39 M/mm3 (4.6-6.2); White Blood Count 5.1 K/mm3 (4.4-11.0)
[2024-11-12 13:29] LABS: ALB/GLOB Ratio 0.7 RATIO (0.9-2.4); AST(SGOT) 24 U/L (15-37); Alanine Aminotransfer ALT/SGPT 22 U/L (16-61); Albumin, Serum 2.6 g/dL (3.2-5.0); Alkaline Phosphatase 83 U/L (45-117); Anion Gap 5 (5-15); BUN 44 mg/dL (7-18); BUN/Creat Ratio 12.3 RATIO (10-20); Calcium,Total 8.2 mg/dL (8.5-10.1); Chloride 116 mmol/L (98-107); Creatinine, Serum 3.59 mg/dL (0.70-1.30); EST Glomerular Filtration Rate 19 mL/min (>60); Est Glom Filt Rate - Afr Amer 23 mL/min (>60); Globulin 3.6 g/dL (2.2-4.2); Glucose 145 mg/dL (74-106); Potassium 4.1 mmol/L (3.5-5.1); Protein, Total 6.2 g/dL (6.4-8.2); Sodium Level 142 mmol/L (136-145)
[2024-11-12 14:27] VITALS: PULSE 87; RESP 16; O2SAT 98
--- NOTE | 2024-11-12 14:29 | EX.ED.DYSGE1 ---
HPI History of Present Illness Chief Complaint: Nausea/Vomiting/Diarrhea Informant: patient Narrative Narrative: 59-year-old male presenting to the emergency room with a chief complaint of vomiting diarrhea. Patient states on Tuesday he began to experience diarrhea and vomiting. He states he is having diarrhea about every 2 hours and he describes it as light brown. He has not had any fever. He is visiting from [place]. He notes a history of diabetes diabetic nephropathy diabetic neuropathy and prior stroke. He feels generally weak and lightheaded with standing. He states he is very thirsty. He notes abdominal cramping. PFSH PFSH Medical History BPH (benign prostatic hyperplasia) Chronic anemia CKD (chronic kidney disease) History of CVA (cerebrovascular accident) Memory impairment GERD (gastroesophageal reflux disease) HLD (hyperlipidemia) HTN (hypertension) Diabetes mellitus, type 2 Former tobacco use Home Medications ?Medication ?Instructions ?Recorded ?Last Taken ?Type atorvastatin 80 mg tablet 80 mg PO QHS cholesterol 07/18/24 Unknown History finasteride 5 mg tablet 5 mg PO QHS prostate 07/18/24 Unknown History insulin glargine 100 unit/mL 32 unit subcut BID diabetes 07/18/24 Unknown History subcutaneous solution (Lantus U-100 Insulin) insulin regular human 100 unit/mL 12 unit subcut TID diabetes 07/18/24 Unknown History injection solution (Humulin R Regular U-100 Insulin) naltrexone 8 mg-bupropion 90 mg 1 tab PO BID mood 07/18/24 Unknown History tablet,extended release pantoprazole 40 mg tablet,delayed 40 mg PO DAILY acid reflux 07/18/24 Unknown History release tamsulosin 0.4 mg capsule 0.4 mg PO QHS prostate 07/18/24 Unknown History amlodipine 10 mg tablet 10 mg PO DAILY 11/12/24 Unknown History donepezil 5 mg tablet 5 mg PO DAILY 11/12/24 Unknown History Allergy/AdvReac Type Severity Reaction Status Date / Time vancomycin Allergy Unknown OTHER Verified 11/12/24 12:27 varenicline (From Chantix) Allergy Unknown Other Verified 11/12/24 12:27 Family History Father CAD (coronary artery disease) Heart disease Hypertension Myocardial infarction Mother Hypertension Heart disease PAF (paroxysmal atrial fibrillation) Surgical History S/P pilonidal cyst excision Status post bilateral total hip replacement S/P appendectomy Status post left foot surgery Social History household members: spouse Smoking Status: Former smoker how long ago did patient quit smoking: Quit 11 years prior (~2012), smoked 3/4 ppd since teen until quit. alcohol intake: never substance use type: does not use ROS ROS ED Constitutional Constitutional ED: Denies chills, fever(s) or weight loss Eyes Eyes: Denies change in vision or diplopia ENT ENT ED: Denies ear pain, rhinorrhea or sore throat Cardiovascular Cardiovascular: Denies chest pain, orthopnea, palpitations or racing heartbeat Respiratory/Chest Respiratory/Chest: Denies cough, dyspnea or orthopnea Gastrointestinal Gastrointestinal: Reports diarrhea, nausea and vomiting; Denies abdominal pain Genitourinary Genitourinary ED: Denies dysuria, hematuria or urinary frequency Musculoskeletal Musculoskeletal: Denies arthralgias or myalgias Integumentary Denies abscess or rash Neurologic Neurologic: Denies headache(s) or weakness Psychiatric Psychiatric: Denies anxiety, depression, suicidal ideation or suicidal thoughts Endocrine Endocrinology: Denies polydipsia, polyphagia or polyuria Allergic/Immunologic Allergic/Immunologic ED: Denies mouth swelling, tongue swelling or urticaria EXAM Physical Exam Const Vital Signs: 11/12/24 12:29 11/12/24 14:27 Temperature 96.9 F L Temperature Source Temporal Pulse Rate 96 87 Respiratory Rate 18 16 Blood Pressure 153/77 H Blood Pressure Mean 102 Pulse Ox 99 98 Oxygen Delivery Method Room Air Positive well nourished and well developed General Appearance ED: well developed and NAD HEENT Reports normocephalic, head/scalp atraumatic and moist mucous membranes Eyes PERRL and EOMs intact bilaterally Neck no lymphadenopathy, supple and no JVD Resp normal respiratory effort and clear to auscultation bilaterally Cardio regular rate, regular rhythm and no murmurs GI normal to inspection, nondistended, normoactive bowel sounds and non-tender Auscultation: hyperactive bowel sounds Palpation: soft Back/Spine no CVA tenderness and normal ROM Extremity normal to inspection General Extremety ED: Negative for edema General Extremity: Negative for edema Neuro oriented x3 and CN's II-XII intact bilaterally Sensorium / Orientation: alert Motor Exam: strength 5/5 throughout Psych mental status grossly normal Mood & Affect: Negative for depressed or tearful Skin no rashes or lesions noted and no wounds MDM MDM MDM Narrative Medical decision making narrative: Differential diagnosis includes acute dehydration gastroenteritis acute kidney injury hypovolemia electrolyte abnormalities colitis hyperglycemia Patient's white count 5.1 hemoglobin 10.3 with a platelet count of 138. Sodium potassium within normal limits CO2 at 20 anion gap is 5 BUN is 44 with a creatinine 3.59. Creatinine is near prior levels. Patient received IV fluids as well as Zofran. He is tolerating p.o. fluids. He is able to give a stool specimen which does seem very consistent with norovirus. We will send this for enteric pathogens. Patient is highly motivated to go home and rest. I will be writing for Zofran can encourage oral hydration. History & Record Review Discussion w/independent historian: Patient Additional record(s) reviewed:: Prior labs Lab Data Attestation: I reviewed the patient's lab results. Labs: Laboratory Results - last 24 hr 11/12/24 12:55 WBC 5.1 RBC 3.39 L Hgb 10.3 L Hct 31.6 L MCV 93.2 MCH 30.4 MCHC 32.6 RDW Std Deviation 49.1 H RDW Coeff of Ernesto 14.6 Plt Count 138 L MPV 9.7 Immature Gran % (Auto) 0.600 Neut % (Auto) 67.2 Lymph % (Auto) 14.4 L [place] % (Auto) 14.4 H Eos % (Auto) 2.6 Baso % (Auto) 0.8 Absolute Neuts (auto) 3.4 Absolute Lymphs (auto) 0.73 L Nucleated RBC % 0 Sodium 142 Potassium 4.1 Chloride 116 H Carbon Dioxide 20.0 L Anion Gap 5 BUN 44 H Creatinine 3.59 H Estim Creat Clear Calc 32.60 Est GFR (MDRD) Af Amer 23 L Est GFR (MDRD) Non-Af 19 L BUN/Creatinine Ratio 12.3 Glucose 145 H Calcium 8.2 L Total Bilirubin 0.20 AST 24 ALT 22 Alkaline Phosphatase 83 Total Protein 6.2 L Albumin 2.6 L Globulin 3.6 Albumin/Globulin Ratio 0.7 L Discharge Plan Triage Chief Complaint: Nausea/Vomiting/Diarrhea ED Provider: Jake Jose Dx/Rx/DC Orders Clinical Impression: Gastroenteritis, Acute dehydration, Diabetes type 2 Instructions: Understanding Norovirus Prescriptions: No Action insulin glargine [Lantus U-100 Insulin] 100 unit/mL solution 32 unit subcut BID tamsulosin 0.4 mg capsule 0.4 mg PO QHS pantoprazole 40 mg tablet,delayed release (DR/EC) 40 mg PO DAILY finasteride 5 mg tablet 5 mg PO QHS naltrexone-bupropion 8-90 mg tablet extended release 1 tab PO BID atorvastatin 80 mg tablet 80 mg PO QHS Humulin R Regular U-100 Insuln 100 unit/mL solution 12 unit subcut TID Patient Comments: takes 12-20 units with meals amlodipine 10 mg tablet 10 mg PO DAILY donepezil 5 mg tablet 5 mg PO DAILY [facility] Provider: [facility] Referrals: [facility] [Primary Care Provider] - Print Language: Portuguese
[2024-11-12] MEDS: Ondansetron 4 MG/2 ML Vial IV (14:34)
[2024-11-12] MEDS: 0.9% Normal Saline (1000mL) 1,000 ML 999 ML IV (14:34)
[2024-11-12 15:49] VITALS: BP 125/87; PULSE 87; RESP 16; TEMP 36.6; O2SAT 98
== END 2024-11-12 15:50 | disposition home or self-care (01) ==
PROVIDERS: Emergency Provider Emergency Medicine; Visit Provider Emergency Medicine
DX: K52.9 Noninfective gastroenteritis and colitis, unspecified (principal); E11.22 Type 2 diabetes mellitus with diabetic chronic kidney disease; Z79.4 Long term (current) use of insulin; N18.9 Chronic kidney disease, unspecified; I12.9 Hypertensive chronic kidney disease with stage 1 through stage 4 chronic kidney disease, or unspecified chronic kidney disease; E86.0 Dehydration; E78.5 Hyperlipidemia, unspecified; Z87.891 Personal history of nicotine dependence; N40.0 Benign prostatic hyperplasia without lower urinary tract symptoms; Z86.73 Personal history of transient ischemic attack (TIA), and cerebral infarction without residual deficits; K21.9 Gastro-esophageal reflux disease without esophagitis
CPT/HCPCS: 80053; 85025; 87506; 96361; 96374; 99283; A4216; J2405